=== PATIENT | male | born 1995 | race American Indian/Alaskan Native ===

== ENCOUNTER 2018-04-16 05:18 | Emergency (ER) | payer SELFPAY ==
[2018-04-16 05:18] VITALS: BMI 26.4
[2018-04-16] MEDS ORDERED: Alum-Mag Hydrox-Simethicone Susp (30 mL) PO STA (05:58)
--- NOTE | 2018-04-16 06:01 | C.PDOC ---
History Of Present Illness 22 year old male presents to the ED c/o epigastric and LUQ abdominal pain that started last night. Patient states feeling bloated. Patient denies fever, chills, nausea, vomit, diarrhea, dysuria, hematuria, back pain, recent travel, s ick contacts. LBM YESTERDAY, PT STATES NORMAL Time Seen by Provider: 04/16/18 05:49 Chief Complaint (Nursing): Abdominal Pain History Per: Patient History/Exam Limitations: no limitations Onset/Duration Of Symptoms: Hrs Current Symptoms Are (Timing): Still Present Location Of Pain/Discomfort: Epigastric, LUQ Radiation Of Pain To:: None Quality Of Discomfort: "Pain" Associated Symptoms: denies: Nausea, Vomiting, Diarrhea, Urinary Symptoms Exacerbating Factors: denies: None Alleviating Factors: denies: None Recent travel outside of the [place]: No Additional History Per: Patient Past Medical History Reviewed: Historical Data, Nursing Documentation, Vital Signs Vital Signs: Last Vital Signs Temp 97.8 F 04/16/18 05:28 Pulse 82 04/16/18 05:28 Resp 18 04/16/18 05:28 BP 127/73 04/16/18 05:28 Pulse Ox 100 04/16/18 05:28 - Medical History PMH: Bronchitis, Gastritis Denies: Depression, Chronic Kidney Disease Surgical History: No Surg Hx - [facility] Procedures EXCISION OF ESOPHAGUS, ENDO, DIAGN (12/01/17) EXCISION OF STOMACH, ENDO, DIAGN (12/01/17) INJECT/INFUSE ELECTROLYT (12/27/12) INJECT/INFUSE NEC (12/27/12) NEBULIZER THERAPY (10/23/04) SUTURE OF LIP LACERATION (01/23/05) Family History: States: Unknown Family Hx - Social History Hx Tobacco Use: No Hx Alcohol Use: No Hx Substance Use: No (Denies) - Immunization History Hx Tetanus Toxoid Vaccination: No Hx Influenza Vaccination: No Hx Pneumococcal Vaccination: No Review Of Systems Constitutional: Negative for: Fever, Chills Cardiovascular: Negative for: Chest Pain Respiratory: Negative for: Shortness of Breath Gastrointestinal: Positive for: Abdominal Pain. Negative for: Nausea, Vomiting, Diarrhea Genitourinary: Negative for: Dysuria, Hematuria Musculoskeletal: Negative for: Back Pain Skin: Negative for: Rash Physical Exam - Physical Exam Appears: Non-toxic, No Acute Distress Skin: Normal Color, Warm, Dry Head: Atraumatic, Normacephalic Eye(s): bilateral: Normal Inspection Neck: Normal ROM, Supple Chest: Symmetrical Cardiovascular: Rhythm Regular Respiratory: Normal Breath Sounds, No Rales, No Rhonchi, No Wheezing Gastrointestinal/Abdominal: Bowel Sounds (active), Soft, Tenderness (minimal epigastric and LUQ), No Guarding, No Rebound Back: No CVA Tenderness Extremity: Normal ROM, No Tenderness, No Swelling Neurological/Psych: Oriented x3, Normal Speech, Normal Cognition Gait: Steady ED Course And Treatment - Laboratory Results Result Diagrams: 04/16/18 06:05 04/16/18 06:05 O2 Sat by Pulse Oximetry: 100 (ON RA) Pulse Ox Interpretation: Normal - Other Rad aBD xr X-Ray: Interpreted by Me, Viewed By Me Interpretation: NO ACUTE PATHOLOGY Progress Note: Plan: - Labs. - Maalox 30 ml PO. - Pepcid 20 mg IVP. - UA. - Obstructive series X-Ray. PT IS RESTING COMFORTABLY ON STRETCHER, CONVERSING WITH PARTNER, SMILING IN NAD. LABS AND XR REVIEWED ANDD/W PT. PT WILL FOLLOW UP WITH. PMD OR IN CLINIC Reevaluation Time: 06:37 Reassessment Condition: Improved Disposition - Disposition Referrals: [facility] [Outside] Disposition Time: 06:31 Condition: STABLE Additional Instructions: PLEASE FOLLOW UP IN CLINIC TAKE MEDICATIIONS PRESCRIBED RETURN TO ER IF WORSE Prescriptions: Aluminum Hydroxide/Magnesium [Maalox Plus 30 ml] 30 ml PO TID #100 ml Famotidine [Pepcid] 20 mg PO DAILY #14 tab Instructions: Acute Abdomen (Belly Pain), Adult (DC) Forms: [employer] (Khmer) - Clinical Impression Clinical Impression: Abdominal pain - 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 - Scribe Statement The provider has reviewed the documentation as recorded by the Scribe Clifton Ruiz All medical record entries made by the Scribe were at my direction and personally dictated by me. I have reviewed the chart and agree that the record accurately reflects my personal performance of the history, physical exam, medical decision making, and the department course for this patient. I have also personally directed, reviewed, and agree with the discharge instructions and disposition.
[2018-04-16 06:11] LABS: BASO # 0.1 K/uL (0.0-0.2); BASO % 0.8 % (0.0-2.0); EOS # 0.3 K/uL (0.0-0.7); EOS % 3.6 % (0.0-4.0); HEMOGLOBIN 13.5 g/dL (12.0-18.0); LYMPH # 2.1 K/uL (1.0-4.3); LYMPH % 28.8 % (20.0-40.0); MEAN CELL VOLUME 88.7 fL (80.0-94.0); MEAN CORPUSCULAR HEMOGLOBIN 29.9 pg (27.0-31.0); MEAN CORPUSCULAR HGB CONC 33.7 g/dL (33.0-37.0); MEAN PLATELET VOLUME 8.1 fL (7.2-11.7); MONO # 0.5 K/uL (0.0-0.8); MONO % 7.6 % (0.0-10.0); NEUT # 4.2 K/uL (1.8-7.0); NEUT % 59.2 % (50.0-75.0); NRBC % 0.1 % (0.0-2.0); RBC 4.53 Mil/uL (4.40-5.90); RED CELL DISTRIBUTION WIDTH 14.1 % (11.5-14.5); WHITE BLOOD COUNT 7.2 K/uL (4.8-10.8)
[2018-04-16 06:18] LABS: URINE BILIRUBIN NEGATIVE (NEGATIVE); URINE BLOOD NEGATIVE (NEGATIVE); URINE CLARITY Clear (Clear); URINE COLOR Straw (YELLOW); URINE GLUCOSE (UA) NORMAL (Normal); URINE LEUKOCYTE ESTERASE NEG Leu/uL (Negative); URINE PROTEIN NEGATIVE (NEGATIVE); URINE UROBILINOGEN NORMAL mg/dL (0.2-1.0)
[2018-04-16 06:26] LABS: ALB/GLOB RATIO 1.6 (1.0-2.1); ALBUMIN 4.6 g/dL (3.5-5.0); ALT/SGPT 21 U/L (21-72); AST/SGOT 21 U/L (17-59); BLOOD UREA NITROGEN 9 mg/dL (9-20); CALCIUM 9.8 mg/dl (8.6-10.4); GFR NON-AFRICAN AMERICAN > 60; LIPASE 64 U/L (23-300)
--- NOTE | 2018-04-16 10:14 | RAD ---
Date of service: 04/16/2018 PROCEDURE: Radiographs of the chest and abdomen (obstructive series) HISTORY: abd pain COMPARISON: No prior. TECHNIQUE: AP radiograph of the chest, with upright and supine radiographs of the abdomen. FINDINGS: CHEST: Lungs: No airspace disease identified bilaterally. Cardiovascular: Normal size heart. No pulmonary vascular congestion. No aortic atherosclerotic calcification present. Pleura: No pleural fluid. No pneumothorax. Other findings: None. ABDOMEN AND PELVIS: Bowel: Unremarkable bowel gas pattern. No evidence of mechanical obstruction. Free air: None. Bones: Unremarkable. Other findings: None. IMPRESSION: Unremarkable radiographs of chest and abdomen. No evidence of mechanical bowel obstruction.
[2018-04-16 10:57] VITALS: BP 110/75; PULSE 68; RESP 18; TEMP 98.2; O2SAT 98
== END 2018-04-16 07:03 | disposition home or self-care (01) ==
LOC: C.ER 05:18
DX: R10.13 Epigastric pain (principal)